=== PATIENT | male | born 1950 | race Caucasian/White ===

== ENCOUNTER 2019-01-12 14:51 | Emergency (ER) | payer BC, OTHER ==
[~2019-01-12] VITALS: Ht 188 cm; Wt 99.8 kg
[2019-01-12] MEDS ORDERED: SODIUM BICARBONATE 8.4% INJ 50ML SYRINGE IV ONE (14:54)
[2019-01-12] MEDS ORDERED: CALCIUM CHLOR(10%) 100MG/ML 10ML SYRINGE IV ONE (14:54)
[2019-01-12] MEDS ORDERED: EPINEPHrine HCL 1 MG/10 ML SYRG IV ONE (14:54)
[2019-01-12] MEDS ORDERED: AMIODARONE HCL (50 MG/ ML) 3 ML VIAL IV ONE (14:54)
[2019-01-12 14:58] VITALS: BP 0/0
== END 2019-01-12 14:59 | disposition expired ==
LOC: EDBD 14:51 → EDUNIT# 14:51 → ER 14:53
DX: I46.9 Cardiac arrest, cause unspecified (principal); J96.90 Respiratory failure, unspecified, unspecified whether with hypoxia or hypercapnia
CPT/HCPCS: 92950; 99285; J0171; J0282